=== PATIENT | female | born 1940 | race Caucasian/White ===

== ENCOUNTER 2018-04-06 11:19 | Inpatient (IN) ==
--- NOTE | 2018-04-04 14:04 | EKG Report ---
Test Performed on : 04/04/2018 1:44:47 PM Test Reason : PAT Blood Pressure : / mmHG Vent. Rate : 084 BPM Atrial Rate : 084 BPM P-R Int : 166 ms QRS Dur : 072 ms QT Int : 346 ms P-R-T Axes : 064 022 053 degrees QTc Int : 408 ms Normal sinus rhythm. Normal ECG When compared with ECG of 09-JUN-2017 21:56, No significant change was found Confirmed by Issa Weems MD ([id number]) on 04/05/2018 6:56:03 AM
[2018-04-04 14:14] LABS: HEMATOCRIT 31.5 % (37.0-47.0); HEMOGLOBIN 9.5 g/dL (12.0-16.0); MCH 22.8 PG (27-31); MCHC 30.2 g/dL (33-37); MCV 75.5 FL (81-99); MPV 8.5 FL (7.4-10.4); RBC 4.17 XMIL (4.2-5.4); RDW 18.6 % (11.5-14.5); WBC 7.98 X1000 (4.8-10.8)
[2018-04-04 14:54] LABS: AGAP 13; BUN 24 mg/dL (8-22); CALCIUM 10.1 mg/dL (8.8-10.2); CHLORIDE 104 mmol/L (98-107); COSMO 280; CREATININE 0.7 mg/dL (0.5-0.9); ESTIMATED GFR > 60; GLUCOSE 107 mg/dL (70-104); SODIUM 138 mmol/L (136-145); TCO2 21 mmol/L (25-35)
[2018-04-06] MEDS ORDERED: KEFZOL 1 GM/D5W 0 GM/0 ML IVPB ONE (11:30)
[2018-04-06] MEDS ORDERED: LR 1,000 ML ONE (11:30)
[2018-04-06] MEDS ORDERED: FENTANYL ONE ×2 (13:08→16:14)
[2018-04-06] MEDS ORDERED: DIPRIVAN 1% ONE (13:08)
[2018-04-06] MEDS ORDERED: XYLOCAINE-MPF 2% ONE (13:08)
[2018-04-06] MEDS ORDERED: VALIUM ONE (13:27)
[2018-04-06] MEDS ORDERED: VANCOMYCIN ONE ×2 (14:49→16:36)
[2018-04-06] MEDS ORDERED: TOBRAMYCIN IV ONE (15:00)
[2018-04-06] MEDS ORDERED: NEOSPORIN G.U. IRRIGANT ONE (15:01)
[2018-04-06] MEDS ORDERED: SODIUM CHLORIDE 0.9% 10 ML ONE ×2 (15:22→16:09)
[2018-04-06] MEDS ORDERED: ROBINUL ONE (15:59)
[2018-04-06] MEDS ORDERED: NEO-SYNEPHRINE ONE (16:08)
[2018-04-06] MEDS ORDERED: ZOFRAN ONE (16:09)
[2018-04-06] MEDS ORDERED: DECADRON ONE (16:09)
[2018-04-06] MEDS ORDERED: VANCOMYCIN 1 GM/NS 1 GM/250 ML IVPB ONE (16:14)
[2018-04-06] MEDS ORDERED: OFIRMEV 1000 MG/ISOTONIC SOLN 1,000 MG/100 ML BOTTLE ONE (16:41)
[2018-04-06] MEDS ORDERED: NS 1,000 ML ONE (18:28)
[2018-04-06] MEDS ORDERED: ZOFRAN PO PRN (19:00)
[2018-04-06] MEDS ORDERED: OXY IR PO PRN (19:00)
[2018-04-06] MEDS ORDERED: DILAUDID IV PRN ×2 (19:00)
[2018-04-06] MEDS: NS 1,000 ML IV SCH (20:55)
[2018-04-06] MEDS: OXY IR PO PRN (20:55)
--- NOTE | 2018-04-06 21:03 | Diag Imaging Result Doc PS360 ---
KNEE 1-2 VIEWS-LEFT - 04/06/2018 INDICATION: postop TECHNIQUE: Two views COMPARISON: 01/06/2017 FINDINGS: There has been removal of the tibial prosthesis. The femoral prosthesis remains stable. There has been placement of extensive surgical radiodense material. IMPRESSION: Removal of the tibial prosthesis. No complication. Electronically signed by Curtis Gregorio 04/06/2018 9:01 PM
--- NOTE | 2018-04-06 21:33 | OPERATIVE NOTE ---
PROCEDURE DATE: 04/06/2018 PREOPERATIVE DIAGNOSIS: Chronic infection left total knee arthroplasty. POSTOPERATIVE DIAGNOSIS: Chronic infection left total knee arthroplasty. PROCEDURE: Irrigation and debridement, and removal of left total knee arthroplasty, and application of antibiotic beads with placement of a cemented femoral component with an all poly tibial polyethylene. SURGEON: Jose Orellana MD 1ST MANAGER ASSEMBLY: Mikaela Abbott SECOND MANAGER ASSEMBLY: Valente Mansfield RN. ANESTHESIA: General. IV FLUIDS: 1500 mL lactated Ringer's. ESTIMATED BLOOD LOSS: 20 mL TOURNIQUET TIME: 90 minutes at 350 mmHg. COMPLICATIONS: None. INDICATIONS: The patient is a pleasant 77-year-old female who is status post left total knee arthroplasty in December of 2016 with subsequent I and D, and application of antibiotic beads. Patient has been treated with chronic p.o. antibiotics for suppression, however , patient has continued with swelling and discomfort in the right knee, and given the [employer] infection and recommendation to proceed with I and D and removal of the implant, and application of antibiotic beads. Risks and benefits of surgery were explained, including the risks of anesthesia, , bleeding, continued infection, failure to relieve pain, postop stiffness, nerve injury, blood clots, and other imponderables. All questions were answered. The patient and family wished to proceed with surgery. DETAILS OF OPERATION: Patient was taken to the operating room and placed supine on the operating table. Once adequate anesthesia was obtained, patient's left lower extremity was prepped and draped in the usual sterile fashion. Esmarch was used to exsanguinate the left lower extremity and the tourniquet was inflated to 300 mmHg. A standard anterior incision was made with skin knife. The medial and skin envelopes developed. Standard medial parapatellar arthrotomy was then performed. The patient did have some purulent fluids. The cultures were obtained. She also had an area on the superior medial aspect of the suprapatellar region which appeared to have a purulent tract which was also developed, and debrided and cultured. After this had been performed, the polyethylene was removed. Attention then turned to the femoral component. An osteotome was used circumferentially to remove the implant. Patient did have evidence of soft osteoporotic bone, and had a small crack and fracture of the lateral epicondyle. The osteotome was then used to remove the tibial component. This followed by removal of all of the cement as well with small osteotome. The patellar component was also removed without difficulty. After this was performed, a total of 6000 mL of antibiotic pulsatile lavage was used to irrigate the wound. This was also followed by pulsatile lavage with Vashe wound solution. After adequate irrigation and debridement had been conducted, the antibiotic beads were prepared earlier in the case. Vancomycin was mixed with cement on the back table. After the preparation of the bone, the femoral component was cemented and held in position loosely. The tenaculum was used to maintain the reduction of the lateral condyle. A size 14 all polyethylene tibial insert was then cemented, and the knee was then maintained in full extension while the cement cured. After cement had cured, it appeared to be stable and had good bone fragment. The lateral condyle appeared to be stable. One 18 Hemovac drain was placed and was not sewn in. The antibiotic beads were then placed. This followed by closure of the arthrotomy with a 0 PDS. The remaining antibiotic beads were placed superficially. 2-0 Prolene was then used to repair the subcutaneous tissue. Adaptic, sterile 4 x 4, Webril, cryo unit, and cryo unit, Conrad wrap of the left lower extremity. Patient tolerated the procedure well with no complications,. and was transferred to recovery room in stable condition. cc: Jose Orellana MD MTDD
[2018-04-06] MEDS: PERIDEX MT SCH (23:22)
[2018-04-06] MEDS ORDERED: CHLORASEPTIC SPRAY MT PRN (23:46)
[2018-04-07] MEDS ORDERED: XANAX PO PRN (00:44)
[2018-04-07] MEDS ORDERED: VANCOMYCIN 1 GM/NS 1 GM/250 ML IVPB IV ONE (04:30)
[2018-04-07] MEDS: XARELTO PO SCH (05:23)
[2018-04-07 06:03] LABS: HEMATOCRIT 26.9 % (37.0-47.0); HEMOGLOBIN 7.9 g/dL (12.0-16.0)
--- NOTE | 2018-04-07 06:03 | PROGRESS NOTE ---
DATE: 04/07/2018 SUBJECTIVE: Patient is a pleasant 77-year-old female who is 1 day status post removal of I D and removal of implant with application of antibiotic beads left knee. Patient currently is resting comfortably. PHYSICAL EXAMINATION: The left lower extremity dressing is intact. Calf is soft. She has active dorsiflexion and plantar flexion. She is grossly neurovascularly intact. LABORATORY: Labs are pending. Cultures are pending. IMPRESSION: Postoperative day #1 status post I D and removal of prosthesis, and application of antibiotic beads. PLAN: At this point, we will consult Dr. Dorsey for further evaluation and recommendations for antibiotic treatment regimen. We will consult Taper Operator for discharge planning. cc: Jose Orellana MD
[2018-04-07 06:24] LABS: AGAP 9; BUN 16 mg/dL (8-22); CALCIUM 9.4 mg/dL (8.8-10.2); CHLORIDE 108 mmol/L (98-107); COSMO 283; CREATININE 0.7 mg/dL (0.5-0.9); ESTIMATED GFR > 60; GLUCOSE 148 mg/dL (70-104); POTASSIUM 5.2 mmol/L (3.5-5.1); SODIUM 140 mmol/L (136-145); TCO2 23 mmol/L (25-35)
[2018-04-07] MEDS: NS 1,000 ML IV SCH (07:30)
[2018-04-07] MEDS: PERIDEX MT SCH ×2 (08:34→22:01)
[2018-04-07] MEDS: LEXAPRO PO SCH (08:34)
[2018-04-07] MEDS: GLUCOPHAGE PO SCH ×2 (08:34→22:01)
[2018-04-07] MEDS: DITROPAN PO SCH (08:35)
[2018-04-07] MEDS: BUSPAR PO SCH ×2 (08:35→22:01)
[2018-04-07] MEDS: PRILOSEC PO SCH (08:35)
[2018-04-07] MEDS: OXY IR PO PRN ×4 (08:36→19:12)
[2018-04-07] MEDS ORDERED: LIPITOR PO SCH (09:00)
[2018-04-07] MEDS: CUBICIN 500 MG in NS 100 ML IV SCH (10:02)
[2018-04-07 10:58] LABS: INR 1.57
--- NOTE | 2018-04-07 11:12 | INFECTIOUS DISEASE CONSULT REP ---
DATE: 04/07/2018 CONCLUSION: The patient is status post irrigation and debridement and removal of an infected left total knee arthroplasty and application of antibiotic beads with placement of a cemented femoral component with an all poly tibial polyethylene. Two prior cultures from the patient's knee have grown methicillin-resistant Staph aureus and I strongly suspect that the same infection will show up on the cultures, Dr. Orellana took at surgery during the surgery yesterday. RECOMMENDATIONS: I the am putting the patient on daptomycin. Some of the side-effect of the medication namely muscle toxicity has been explained to the patient who agrees with treatment. I told the patient and her daughter that while the patient is on daptomycin, she should not take Lipitor because both Lipitor and daptomycin can cause muscle damage. DISCUSSION: The patient has had a methicillin-resistant Staph aureus infection of her left total knee arthroplasty, and there was a culture which grew MRSA on March 24, 2017 and another one on March 17, 2018. The patient's knee has been swelling and it is painful and also drains. Laboratory studies thus far show a CBC with a white count of 7980, hemoglobin 7.9, platelet count 471,000. Creatinine is 0.7. GFR is greater than 60. The results of the cultures from yesterday are pending. The Gram stains performed on the knee show no bacteria. PAST MEDICAL HISTORY/REVIEW OF SYSTEMS: Eyes and ears: Patient has decreased hearing. Her vision is okay. Neck: No stiffness. Respiratory: The patient does get short of breath on exertion. She is not coughing. Cardiac: She does not have any chest pain or palpitations. GI: She has problems with constipation. Genitourinary: Patient has urinary incontinence. Neurologic: No seizures and no recent loss of motor or sensory function. Bones, joints, muscles: See present illness. Endocrine: Patient is a diabetic, but she does not have thyroid disease. General: The patient has lost 30 pounds and she can walk but usually she needs a cane to walk. SYSTEM SUPPORT SPECIALIST HISTORY: She is a 3, para 3, AB 0. She has had a total abdominal hysterectomy and a unilateral oophorectomy. MEDICAL DISEASES: Positive for diabetes mellitus and hyperlipidemia. The patient, at one time, had hypertension, but she said she does not have it anymore. INFECTIOUS DISEASE HISTORY: Positive for pneumonia, urinary tract infection, and methicillin- resistant Staph aureus total knee arthroplasty infection. FAMILY HISTORY: Positive for diabetes mellitus, hypertension, myocardial infarction, and stroke. SOCIAL HISTORY[place] . She has dog and a cat for pets. She has not smoked cigarettes in 10 years. She does not drink alcoholic beverages or abuse drugs. PHYSICAL EXAMINATION: Vital Signs: Temperature is 97.6 degrees, pulse 77, respirations 18, blood pressure 131/53. The patient is 5 feet 8 inches tall, weighs 166 pounds. General: This is an obese, elderly female. She is in no acute distress. Head/eyes/ears/nose/throat: She can hear my spoken words and see near objects. She does not have any white coating on her tongue. Neck: No meningismus. Lungs: Clear to auscultation. Cardiovascular: Regular heart rate. Abdomen: Soft and nontender. Extremities: The patient has a large dressing around his left total knee arthroplasty. Neurologic: Patient is awake. She can move her extremities. There is no tremor. Her memory as regarding her medical history was good. Integument: No rash noted. Thank you for the consult. cc: MD Jose Cohen MD
[2018-04-07] MEDS ORDERED: NS 250 ML ONE (15:09)
[2018-04-08] MEDS: XARELTO PO SCH (05:21)
[2018-04-08 06:32] LABS: HEMATOCRIT 25.3 % (37.0-47.0); HEMOGLOBIN 7.5 g/dL (12.0-16.0)
[2018-04-08] MEDS ORDERED: OXY IR PO PRN (06:56)
[2018-04-08] MEDS: CUBICIN 500 MG in NS 100 ML IV SCH (08:12)
[2018-04-08] MEDS: PERIDEX MT SCH ×2 (08:13→23:09)
[2018-04-08] MEDS: DITROPAN PO SCH (08:13)
[2018-04-08] MEDS: BUSPAR PO SCH ×2 (08:13→23:09)
[2018-04-08] MEDS: PRILOSEC PO SCH (08:13)
[2018-04-08] MEDS: LEXAPRO PO SCH (08:13)
[2018-04-08] MEDS: GLUCOPHAGE PO SCH ×2 (08:14→23:09)
[2018-04-08] MEDS: OXY IR PO PRN ×3 (08:15→23:09)
--- NOTE | 2018-04-08 09:33 | INFECTIOUS DISEASE PROGRESS NO ---
DATE: 04/08/2018 PRESENT ILLNESS: Ms. Oropeza has had a chronic methicillin-resistant Staph aureus, infected left knee arthroplasty. She is status post irrigation, debridement and removal of that left knee done by Dr. Orellana. MEDICATION: She is receiving daptomycin 500 mg IV once a day. PHYSICAL EXAMINATION: Vital Signs: Temperature is 97.9, pulse rate 88, respiratory rate 18, blood pressure 152/49, O2 saturation 99% on room air. General: This is a chronically ill- appearing, elderly female. She is laying in the bed, currently in no acute distress. HEENT: Atraumatic, normocephalic. Oral mucous membranes are pink and moist. Conjunctivae are pale. Neck: Supple. Trachea is midline. Cardiovascular: Heart rate is regular. Radial and pedal pulses are +2 bilaterally. Respiratory: Lung sounds are clear to auscultation. Abdomen: Soft, round and nontender. Bowel sounds are active. Extremities: There is a PICC line to her right upper arm. Site is without edema, erythema, or drainage. There is a dressing in place to her left knee, which is clean, dry and intact. There is some surrounding edema noted. Neurologic: She is awake, alert and oriented. No tremors are noted. LABORATORY AND X-RAY: Today, her hemoglobin is 7.5. White count on admission was 7.98. Yesterday, her creatinine was 0.7 and estimated GFR greater than 60. So far, the left knee Gram stain shows no bacteria or yeast and more incubation is required for the final cultures. No imaging reports today. ASSESSMENT AND PLAN: Ms. Oropeza is being treated for previously infected left total knee, which has grown methicillin-resistant Staph aureus in the recent past. That knee has been removed and the plan is for her to go to rehab when she is able. Plan for now is to continue daptomycin 500 mg IV daily. I've discussed with her, the need to monitor and report side effects of muscle aches or pains and stop her Lipitor while she is taking this medication. We have also put her in isolation due to her history of MRSA in that knee last month. These plans have been discussed with and recommended by Dr. Dorsey. COMORBIDITIES: For Ms. Oropeza include that she is elderly with diabetes mellitus, gastroesophageal reflux disease, osteoarthritis and rheumatoid arthritis. Dictated by ANASTASIYA Dias for Erick Dorsey MD This chart was documented by, ANASTASIYA Dias and accurately reflects the services performed, treatment plan and medical decisions as attested by the providers signature Erick Dorsey MD. cc: MD Jose Cohen MD [facility]
--- NOTE | 2018-04-08 14:42 | PROGRESS NOTE ---
DATE: 04/08/2018 SUBJECTIVE: The patient is a pleasant,77-year-old female, who is 2 days status post I and D with removal of left total knee arthroplasty, application of antibiotic beads. She is currently resting comfortably. OBJECTIVE: Extremities: On physical examination of the patient's left lower extremity, her wound looks good. There is no significant drainage. Calf is soft. Active dorsiflexion, plantar flexion. LABS: Her hemoglobin is 7.5, hematocrit is 25.3. INTRAOPERATIVE CULTURES: Demonstrating gram-positive cocci. IMPRESSION: Postoperative day #2 status post incision and drainage and left total knee arthroplasty. PLAN: At this point, I discussed treatment options with the patient. At this time, she will continue to progress with partial weightbearing left lower extremity with physical therapy. Survey Party Chief has been consulted to assist with rehabilitation bed placement. She will be treated with daptomycin per Dr. Dorsey. cc: Jose Orellana MD
--- NOTE | 2018-04-08 15:17 | Diag Imaging Result Doc PS360 ---
EXAM: CHEST-1 VIEW - 04/08/2018 HISTORY: REHAB TECHNIQUE: Portable chest COMPARISON: 06/09/2017 FINDINGS: Heart size is normal. There is some tortuosity of the thoracic aorta similar to prior. Inspiration is mildly shallow. Lungs appear clear. There is no pleural effusion or pneumothorax identified. There is a PICC which enters from the right, and has its tip at or near the caval atrial junction. IMPRESSION: Mildly shallow inspiration. No other evidence of acute disease. Electronically signed by Matheus Bray 04/08/2018 3:15 PM
--- NOTE | 2018-04-08 16:06 | DISCHARGE SUMMARY ---
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 DISCHARGE DIAGNOSIS: Chronic infection of left total knee arthroplasty, status post irrigation debridement and removal of left total knee arthroplasty and application of antibiotic beads and placement of cemented femoral component with an all polyethylene tibial component. BRIEF HISTORY: The patient is a pleasant 77-year-old female status post left total knee arthroplasty in December 2016. Patient underwent subsequent I and D and application of antibiotic beads. She underwent treatment with IV antibiotics and has been treated with attempt at chronic suppression with doxycycline. Patient continued with some swelling and some discomfort and wished to proceed with I and D and removal of the implant. The risks and benefits discussed and all questions answered. The patient and family agreed with treatment plan. HOSPITAL COURSE: Patient admitted in the hospital, underwent irrigation and debridement and removal of left total knee arthroplasty with application of antibiotic beads and placement of cemented femoral component with an all polyethylene tibial component. Patient tolerated the procedure well. She had an uneventful postoperative course. By postoperative day #2, her hemoglobin and hematocrit was 7.5 and 25.3, her vital signs were stable. Prior to discharge, the patient is afebrile, tolerating a regular diet, was slowly mobilizing with Physical Therapy with partial weightbearing to left lower extremity. Dr. Dorsey was consulted to assist with IV antibiotic treatment regimen and patient will be treated with daptomycin. Her previous cultures did reveal MRSA. It is felt the patient would benefit from inpatient rehabilitation and patient and family are agreeable to this. DISCHARGE MEDICATIONS: 1. Oxy IR 5 mg 1 p.o. q.4 hours p.r.n. pain. 2. Xarelto 10 mg p.o. daily x2 weeks. 3. Daptomycin 500 mg IV q.24 hours. 4. For remaining medications, please see medication list. DISCHARGE INSTRUCTIONS: 1. Patient will be discharged to inpatient rehabilitation. 2. Consult Physical Therapy with partial weightbearing to left lower extremity, and patient may perform range of motion exercises as tolerated. 3. Discontinue sutures in 10 days. 4. Follow up in the office in 3 weeks. cc: Jose Orellana MD
[2018-04-08] MEDS: NS 1,000 ML IV SCH (16:23)
--- NOTE | 2018-04-08 16:23 | INFECTIOUS DISEASE PROGRESS NO ---
DATE: 04/08/2018 The patient his methicillin-resistant Staphylococcus aureus infected total knee arthroplasty. Cultures taken at surgery are growing gram-positive cocci, which most likely will be identified as methicillin-resistant Staphylococcus aureus. The patient is going to go to a rehab facility and after that will be going home. I have requested to have the patient come to my office in 3 weeks and then again at 3 weeks and then again in 2 weeks. She will be treated with daptomycin for a total of 8 weeks following surgery on her knee. After that, I will stop the antibiotics because if I keep them going, we might not know for sure if the infection has been eradicated or not; whereas, if we stop the antibiotics and there still is infection present, then we should be able to identify that, and if that were the situation, Dr. Orellana of course would not put in another prosthetic knee. cc: MD Jose Cohen MD
[2018-04-09] MEDS: NS 1,000 ML IV SCH (02:07)
[2018-04-09 05:43] LABS: HEMATOCRIT 27.6 % (37.0-47.0); HEMOGLOBIN 8.1 g/dL (12.0-16.0)
[2018-04-09] MEDS: XARELTO PO SCH (05:49)
[2018-04-09] MEDS: LEXAPRO PO SCH (08:56)
[2018-04-09] MEDS: BUSPAR PO SCH (08:56)
[2018-04-09] MEDS: DITROPAN PO SCH (08:56)
[2018-04-09] MEDS: GLUCOPHAGE PO SCH (08:56)
[2018-04-09] MEDS: CUBICIN 500 MG in NS 100 ML IV SCH (08:56)
[2018-04-09] MEDS: PRILOSEC PO SCH (08:56)
[2018-04-09] MEDS: PERIDEX MT SCH (08:57)
[2018-04-09 09:51] VITALS: BP 156/63
--- NOTE | 2018-04-09 10:33 | PROGRESS NOTE ---
DATE: 04/09/2018 Ms. Oropeza is seen status post incision and drainage of her knee. She is awaiting transfer this morning. Currently, she is resting and doing well. All transfer orders and prescriptions have been done by Dr. Orellana. She can be transferred to a [place] [facility] facility today. cc: MD Jose Ramon MD
== END 2018-04-09 14:48 | DRG 467 ==
LOC: 4N 11:19 → OPS 11:19 → EDSTATUS 13:30 → OBSVTOIN 18:40
PROVIDERS: ADMIT Orthopaedic Surgery Adult Reconstructive Orthopaedic Surgery; ATTEND Orthopaedic Surgery Adult Reconstructive Orthopaedic Surgery
CPT/HCPCS: 36569; 71010; 71045; 73560; 80048; 85014; 85018; 85027; 85610; 87070; 87075; 87077; 87186; 87205; 93005; 93010; 94760; 94761; 94799; 97162; 97530; A9270; J0131; J0690; J0878; J1100; J1170; J2370; J2405; J3010; J3260; J3370; J7030; J7050; J7120

== ENCOUNTER 2018-08-03 03:29 | Inpatient (IN) ==
--- NOTE | 2018-07-27 09:46 | EKG Report ---
Test Performed on : 07/27/2018 09:28:39 AM Test Reason : PAT Blood Pressure : / mmHG Vent. Rate : 061 BPM Atrial Rate : 061 BPM P-R Int : 184 ms QRS Dur : 072 ms QT Int : 388 ms P-R-T Axes : 037 008 010 degrees QTc Int : 390 ms Normal sinus rhythm. Nonspecific ST abnormality Abnormal ECG When compared with ECG of 04-APR-2018 13:44, No significant change was found Confirmed by Gerardo SUAZO, Spencer Diallo ([id number]) on 07/29/2018 11:58:53 AM
[2018-07-27 10:01] LABS: URINE SOURCE CLEAN CATCH
[2018-07-27 10:16] LABS: BASO# 0.05 X1000 (0.0-0.2); BASO% 0.8 % (0.0-0.8); EOS# 0.34 X1000 (0.0-0.7); EOS% 5.4 % (0.0-10.0); HEMATOCRIT 37.8 % (37.0-47.0); HEMOGLOBIN 12.1 g/dL (12.0-16.0); LYMPH# 2.59 X1000 (1.2-3.4); LYMPH% 41.2 % (20.5-51.1); MCH 26.7 PG (27-31); MCV 83.3 FL (81-99); MONO# 0.56 X1000 (0.11-0.59); MONO% 8.9 % (1.7-9.3); MPV 9.8 FL (7.4-10.4); NEUT# 2.74 X1000 (1.4-6.5); NEUT% 43.7 % (42.2-75.2); PLT 221 X1000 (130-400); RBC 4.54 XMIL (4.2-5.4); RDW 16.3 % (11.5-14.5); WBC 6.28 X1000 (4.8-10.8)
[2018-07-27 10:18] LABS: BILIRUBIN URINE NEGATIVE (NEGATIVE); BLOOD URINE NEGATIVE (NEGATIVE); COLOR YELLOW; GLUCOSE URINE NEGATIVE (NEGATIVE); KETONE URINE NEGATIVE (NEGATIVE); LEUKOCYTES URINE MODERATE (NEGATIVE); NITRITE URINE NEGATIVE (NEGATIVE); PH URINE 5.5; PROTEIN URINE NEGATIVE (NEGATIVE); TURBIDITY URINE CLEAR (CLEAR); UR EPITHELIAL CELLS <10 /HPF (<10); URINE BACTERIA 1+ /HPF; URINE RBC <10 /HPF (<10); UROBILINOGEN URINE NORMAL (NORMAL)
[2018-07-27 10:28] LABS: INR 0.92; PROTIME 13.2 Seconds (11.0-16.0)
[2018-07-27 10:29] LABS: PTT 28.8 Seconds (22.3-41.8)
[2018-07-27 11:26] LABS: AGAP 12; BUN 27 mg/dL (8-22); CALCIUM 9.3 mg/dL (8.8-10.2); CHLORIDE 107 mmol/L (98-107); COSMO 285; CREATININE 0.8 mg/dL (0.5-0.9); ESTIMATED GFR > 60; GLUCOSE 100 mg/dL (70-104); POTASSIUM 4.1 mmol/L (3.5-5.1); SODIUM 140 mmol/L (136-145); TCO2 21 mmol/L (25-35)
[2018-08-03] MEDS ORDERED: COLACE ONE (12:04)
[2018-08-03] MEDS ORDERED: REGLAN ONE (12:05)
[2018-08-03] MEDS ORDERED: KEFZOL 1 GM/D5W 1 GM/50 ML IVPB ONE (12:05)
[2018-08-03] MEDS ORDERED: LYRICA ONE (12:05)
[2018-08-03] MEDS ORDERED: LR 1,000 ML ONE (12:05)
[2018-08-03] MEDS ORDERED: CELEBREX ONE (12:05)
[2018-08-03] MEDS ORDERED: PEPCID ONE (12:05)
[2018-08-03] MEDS ORDERED: DIPRIVAN 1% ONE (12:57)
[2018-08-03] MEDS ORDERED: XYLOCAINE-MPF 2% ONE (13:02)
[2018-08-03] MEDS ORDERED: TORADOL ONE (14:27)
[2018-08-03] MEDS ORDERED: DURAMORPH ONE (14:27)
[2018-08-03] MEDS ORDERED: VANCOMYCIN ONE ×2 (14:27→16:23)
[2018-08-03] MEDS ORDERED: MARCAINE 0.25% PF/EPI 1:200,000 ONE (14:27)
[2018-08-03] MEDS ORDERED: SODIUM CHLORIDE 0.9% ONE (14:28)
[2018-08-03] MEDS ORDERED: EXPAREL 1.3% ONE (14:28)
[2018-08-03] MEDS ORDERED: CYKLOKAPRON 1,000 MG/NS 1,000 MG/100 ML IVPB ONE ×2 (14:28→15:53)
[2018-08-03] MEDS ORDERED: NEOSPORIN G.U. IRRIGANT ONE (14:28)
[2018-08-03] MEDS ORDERED: ZOFRAN ONE (14:59)
[2018-08-03] MEDS ORDERED: DECADRON ONE (15:00)
[2018-08-03] MEDS ORDERED: DILAUDID ONE (15:13)
[2018-08-03] MEDS ORDERED: FENTANYL ONE (15:19)
[2018-08-03] MEDS ORDERED: VANCOMYCIN 1 GM/NS 1 GM/250 ML IVPB ONE (15:24)
[2018-08-03] MEDS ORDERED: EPHEDRINE ONE (17:17)
[2018-08-03] MEDS ORDERED: NS 1,000 ML ONE (17:44)
[2018-08-03 17:59] LABS: URINE SOURCE CATH
[2018-08-03 18:02] LABS: BILIRUBIN URINE NEGATIVE (NEGATIVE); BLOOD URINE NEGATIVE (NEGATIVE); COLOR YELLOW; GLUCOSE URINE NEGATIVE (NEGATIVE); KETONE URINE NEGATIVE (NEGATIVE); LEUKOCYTES URINE NEGATIVE (NEGATIVE); NITRITE URINE NEGATIVE (NEGATIVE); PROTEIN URINE NEGATIVE (NEGATIVE); SP GRAVITY URINE 1.011; TURBIDITY URINE CLEAR (CLEAR); UROBILINOGEN URINE NORMAL (NORMAL)
[2018-08-03 18:04] LABS: UR EPITHELIAL CELLS <10 /HPF (<10); URINE BACTERIA NEGATIVE /HPF; URINE RBC <10 /HPF (<10); URINE WBC <10 /HPF (<10)
[2018-08-03] MEDS ORDERED: OXY IR PO PRN ×2 (19:15)
[2018-08-03] MEDS ORDERED: ZOFRAN PO PRN (19:15)
[2018-08-03] MEDS ORDERED: DEMEROL IV PRN (19:16)
--- NOTE | 2018-08-03 19:46 | OPERATIVE NOTE ---
PROCEDURE DATE: 08/03/2018 PREOPERATIVE DIAGNOSIS: Status post irrigation and debridement, removal of prosthesis, application of antibiotic beads, cemented femoral condyle and all-polyethylene tibial component for a left total knee arthroplasty infection. POSTOPERATIVE DIAGNOSIS: Status post irrigation and debridement, removal of prosthesis, application of antibiotic beads, cemented femoral condyle and all-polyethylene tibial component for a left total knee arthroplasty infection. PROCEDURE: Revision left total knee arthroplasty with DePuy Sigma size 3, TC3 femoral component with a 40 mm universal femoral sleeve, 75 x 16 universal fluted stem, a size 4 revision tibial tray with a 37 mm metaphyseal sleeve, and 75 x 14 mm universal fluted stem, a 17.5 mm rotating platform tibial insert and a 32 mm round dome patella. SURGEON: Jose Orellana MD ASSISTED LIVING HOME DIRECTOR: ANASTASIYA Prather SECOND WOVEN LABEL DESIGNER: Valente Mansfield RN ANESTHESIA: General. INTRAVENOUS FLUIDS: Lactated Ringer 1600 mL ESTIMATED BLOOD LOSS: 25 mL TOURNIQUET TIME: Two hours at 300 mmHg. COMPLICATIONS: None. INDICATION: The patient is a pleasant 77-year-old female who it is status post left total knee arthroplasty in 12/2016. The patient developed postoperative infection and underwent I and D and attempted salvage of procedure with long-term antibiotics. She continued with worsening symptoms, and approximately 4 months ago underwent I and D, removal of prosthesis, application of antibiotic beads with cemented femoral component and an all-polyethylene tibial component. She was treated with IV antibiotics. Postoperatively she responded well on postoperative lab results, and was negative for infection. Recommendation is to proceed with revision left total knee arthroplasty. The risks, benefits and alternatives of surgery were explained, including the risks of anesthesia, , bleeding, infection, failure to relieve pain, postoperative stiffness, nerve injury, blood clots and other imponderables. All questions were answered and the patient and family wished to proceed with surgery. DETAILS OF OPERATION: The patient was taken to the operating room and placed supine on the operating table. Once adequate anesthesia was obtained, the patient's left lower extremity was subsequently prepped and draped in the usual sterile fashion. An Esmarch was used to exsanguinate the left lower extremity. The tourniquet was inflated to 300 mmHg. A standard anterior incision was made through the previous surgical incision. A medial parapatellar arthrotomy was then performed. Intraoperative cultures were obtained and stat Gram stain was negative for bacteria. After adequate elevation of the soft tissue, the femoral component was removed without difficulty as well as the tibial component. Provisional resection of the tibia was performed to remove the remaining portion of the cement. After this had been performed, sequential reaming was conducted in the intramedullary canal as well as the femur up to a size 12 for the tibia and up to a size 16 for the femur. Over-reaming was then conducted on both the proximal tibia and the distal femur. Sequential broaching was then performed with the metaphyseal broach up to a size 37. It had good fit. This was countersunk and resected off the proximal tibia, off the trial broach. A size 4 tray with a 37 mm metaphyseal sleeve and a 75 x 12 trial stem was then placed. It had good fit. Attention was then turned to the distal femur, where sequential broaching was performed up to a size 40 mm. After this had been performed, the stem was placed in the broach. The distal femoral cutting block was pinned in position. Distal femoral cut was then performed. The chamfer cutting block was placed in position and with the knee held in approximately 90 degrees of flexion. This was then pinned. Anterior, posterior and chamfer cuts were then made. A box cutting guide was then placed and the box cut was performed. Femoral construct was then assembled, and it had good fit. The patella was everted and gently minimally resected. A guide was then placed and the drill holes were placed. We had good patellofemoral tracking. The trial components were then removed. Vancomycin was mixed with cement on the back table while copious irrigation was performed with antibiotic pulsatile lavage. The tibial and femoral components were assembled on back table. The tibial construct was then cemented in position first. Excess cement was removed with a [place]. The femoral construct was then was cemented in standard fashion. It had good fit. The trial tibial insert was then placed in full extension. Axial load was maintained while the cement cured. The patella was cemented in standard fashion. After the cement had cured, inspection of the patella had inadequate fixation; therefore, it was recut and redrilled. A new batch of cement was performed. The patella was then cemented and had good fit at that point. Exparel was placed in deep soft tissue as well as subcutaneous tissue. The 17.5 mm rotating platform tibial insert appeared to be the correct size. The trial insert was removed. Exparel was placed in the deep posterior capsule. The wound was copiously irrigated with antibiotic pulsatile lavage. The 17.5 mm rotating platform tibial insert was then placed. We had good soft tissue balance, good range of motion and good patellofemoral tracking. A 1/8- inch Hemovac drain was placed. It was not sewn in. Copious irrigation was then performed once again with antibiotic pulsatile lavage. Number 1 Vicryl was then used to repair the arthrotomy, followed by 2-0 Vicryl to repair subcutaneous tissue and skin rosanne. Adaptic, sterile 4 x 4's, ABD pad, Webril, cryotherapy unit and Conrad wrap were applied to the left lower extremity. The patient tolerated the procedure well. There was no complication. She was transferred to the recovery room in stable condition. cc: Jose Orellana MD
--- NOTE | 2018-08-03 20:19 | Diag Imaging Result Doc PS360 ---
EXAM: KNEE 1-2 VIEWS-LEFT 08/03/2018 HISTORY: Rev. Left total knee TECHNIQUE: Three views COMMENT: There is a total knee arthroplasty which has replaced the femoral arthroplasty prosthesis present on 04/06/2018. The antibiotic eluding beads and cement which was present over the tibial plateau region at the time the previous study has been resected. IMPRESSION: Postsurgical change. Electronically signed by Rosalio Constantino 08/03/2018 8:17 PM
[2018-08-03] MEDS ORDERED: KEFZOL 1 GM/D5W 1 GM/50 ML IVPB IV SCH (22:30)
[2018-08-04] MEDS: COLACE PO SCH ×3 (00:19→22:45)
[2018-08-04] MEDS: BUSPAR PO SCH ×3 (00:19→21:45)
[2018-08-04] MEDS ORDERED: VANCOMYCIN 1 GM/NS 1 GM/250 ML IVPB IV ONE (03:30)
[2018-08-04] MEDS ORDERED: XARELTO PO SCH (06:00)
[2018-08-04 06:02] LABS: HEMATOCRIT 33.9 % (37.0-47.0); HEMOGLOBIN 10.7 g/dL (12.0-16.0)
[2018-08-04 06:24] LABS: AGAP 9; BUN 23 mg/dL (8-22); CHLORIDE 106 mmol/L (98-107); COSMO 283; CREATININE 0.9 mg/dL (0.5-0.9); ESTIMATED GFR > 60; GLUCOSE 131 mg/dL (70-104); POTASSIUM 5.2 mmol/L (3.5-5.1); SODIUM 139 mmol/L (136-145); TCO2 24 mmol/L (25-35)
--- NOTE | 2018-08-04 07:02 | ORTHOPAEDICS PROGRESS NOTE ---
DATE: 08/04/2018 SUBJECTIVE: The patient is a pleasant, 77-year-old female who is 1 day status post revision left total knee arthroplasty. The patient is currently resting comfortably. OBJECTIVE: On physical examination of the patient's left lower extremity, her wound looks good. There are no signs or symptoms of infection. Calf is soft. She has active dorsiflexion and plantar flexion. Her hemoglobin is 10.7, hematocrit is 33.9. IMPRESSION: Postoperative day #1 status post revision left total knee arthroplasty. PLAN: At this point, we will begin mobilization with physical therapy, weightbearing as tolerated. We will consult social human services assistants for discharge planning for inpatient rehabilitation. cc: Jose Orellana MD
[2018-08-04] MEDS: ULTRAM PO PRN ×2 (07:32→19:33)
[2018-08-04] MEDS: PRILOSEC PO SCH (08:44)
[2018-08-04] MEDS: DITROPAN PO SCH (08:45)
[2018-08-04] MEDS: GLUCOPHAGE PO SCH ×2 (08:45→17:06)
[2018-08-04] MEDS: LEXAPRO PO SCH (08:45)
[2018-08-04] MEDS: PERIDEX MT SCH ×2 (08:46→22:45)
[2018-08-04] MEDS: NS 1,000 ML IV SCH (08:49)
--- NOTE | 2018-08-04 13:11 | Diag Imaging Result Doc PS360 ---
EXAM: CHEST-2 VIEWS 08/04/2018 HISTORY: rehab placement TECHNIQUE: PA and lateral chest COMMENT: The inspiration is suboptimal. There is a platelike opacity in the left upper lobe which may indicate atelectasis otherwise lungs are clear and unchanged since 04/08/2018. IMPRESSION: Left upper lobe subsegmental atelectasis. Electronically signed by Rosalio Constantino 08/04/2018 1:09 PM
[2018-08-05] MEDS ORDERED: OXY IR PO PRN (06:14)
[2018-08-05 06:50] LABS: HEMATOCRIT 28.3 % (37.0-47.0); HEMOGLOBIN 8.9 g/dL (12.0-16.0)
[2018-08-05] MEDS: OXY IR PO PRN ×2 (07:41→13:51)
--- NOTE | 2018-08-05 09:35 | DISCHARGE SUMMARY ---
ADMISSION DATE: 08/03/2018 DISCHARGE DATE: 08/06/2018 ADMITTING DIAGNOSIS: Left total knee arthroplasty infection and status post irrigation debridement and removal of prosthesis, application antibiotic beads and cemented femoral component condyle and all polyethylene tibial insert component for total left total knee arthroplasty infection. POSTOPERATIVE DIAGNOSIS: Left total knee arthroplasty infection and status post irrigation debridement and removal of prosthesis, application antibiotic beads and cemented femoral component condyle and all polyethylene tibial insert component for total left total knee arthroplasty infection status post revision left total knee arthroplasty. BRIEF HISTORY: The patient is a pleasant 77-year-old female who is status post left total knee arthroplasty in December 2016. Patient developed postoperative infection underwent I and D and attempted salvage of the prosthesis with group home antibiotics. She has continued with chronic infection and recommendation to proceed with I and D and removal of prosthesis was offered. This was performed approximately 4 months ago. Patient was treated with IV antibiotics and has had completed the course. Her postoperative lab results were negative for an infection. Recommendation to proceed with revision left total knee arthroplasty was offered. Risks, benefits were discussed and all questions answered. HOSPITAL COURSE AND TREATMENT: The patient was admitted and underwent revision left total knee arthroplasty. She tolerated procedure well. Intraoperative cultures were negative. By postoperative day #2, her hemoglobin and hematocrit stabilized to 8.9 and 28.3. She was slowly mobilizing with physical therapy and it was felt she would benefit from inpatient rehabilitation. The patient and family were agreeable to this. Prior to discharge, the patient is afebrile tolerating a regular diet. Wound looked good. There is no signs or symptoms of infection. Pain was controlled with p.o. medication. DISCHARGE MEDICATIONS: 1. Oxy IR 5 mg p.o. 1 to 2 p.o. q.4 hours p.r.n. pain. 2. Aspirin 325 mg p.o. daily. 3. For remaining medications, please see medication list. DISCHARGE INSTRUCTIONS: 1. Patient was discharged for inpatient rehabilitation. 2. Consult physical therapy with full weightbearing, and range of motion exercises and gait training per total knee protocol and PCU. 3. Discontinue rosanne in 11 days. 4. Follow up in the office in 3 to 4 weeks. cc: Jose Orellana MD MTDD
[2018-08-05] MEDS: ASPIRIN PO SCH (09:44)
[2018-08-05] MEDS: COLACE PO SCH (09:44)
[2018-08-05] MEDS: DITROPAN PO SCH (09:45)
[2018-08-05] MEDS: BUSPAR PO SCH (09:45)
[2018-08-05] MEDS: GLUCOPHAGE PO SCH ×2 (09:45→17:37)
[2018-08-05] MEDS: PERIDEX MT SCH (09:45)
[2018-08-05] MEDS: LEXAPRO PO SCH (09:45)
[2018-08-05] MEDS: PRILOSEC PO SCH (09:45)
--- NOTE | 2018-08-05 10:45 | ORTHOPAEDICS PROGRESS NOTE ---
DATE: 08/05/2018 SUBJECTIVE: The patient is a pleasant 77-year-old female who is 2 days status post revision left total knee arthroplasty. She is experiencing some discomfort this morning. OBJECTIVE: On physical exam, patient's left lower extremity dressing is intact. There is some swelling will some bleeding at the site of the incision. Calf is soft. She has active dorsiflexion, plantar flexion. She is neurovascularly distally. LABS: Pending. IMPRESSION: Postoperative day #2 status post revision left total knee arthroplasty. PLAN: At this point, I felt the patient would benefit from inpatient rehabilitation. Maintenance Analyst had been consulted for discharge planning. cc: Jose Orellana MD
[2018-08-05] MEDS: NS 1,000 ML IV SCH (13:52)
[2018-08-05] MEDS: ULTRAM PO PRN (17:39)
[2018-08-06] MEDS: OXY IR PO PRN (00:28)
[2018-08-06] MEDS: PERIDEX MT SCH ×2 (00:29→08:06)
[2018-08-06] MEDS: BUSPAR PO SCH ×2 (00:29→08:03)
[2018-08-06] MEDS: COLACE PO SCH ×2 (00:29→08:05)
[2018-08-06 07:45] LABS: HEMATOCRIT 25.7 % (37.0-47.0)
--- NOTE | 2018-08-06 07:46 | ORTHOPAEDICS PROGRESS NOTE ---
DATE: 08/06/2018 SUBJECTIVE: The patient is a pleasant 77-year-old female, three days status post revision left total knee arthroplasty. She is currently resting comfortably. OBJECTIVE: General: On physical exam, patient's wound looks good. There are no signs or symptoms of infection. Her intraoperative culture is negative. Left lower extremity: The left lower extremity wound looks good. There are no signs or symptoms of infection. Calf is soft. She has active dorsiflexion and plantar flexion. Her intraoperative cultures were negative. IMPRESSION: Postoperative day #3 status post left revision total knee arthroplasty. PLAN: At this point, we will plan on discharging for inpatient rehabilitation. cc: Jose Orellana MD
[2018-08-06 07:57] VITALS: BP 131/49
[2018-08-06] MEDS: DITROPAN PO SCH (08:03)
[2018-08-06] MEDS: PRILOSEC PO SCH (08:04)
[2018-08-06] MEDS: LEXAPRO PO SCH (08:04)
[2018-08-06] MEDS: GLUCOPHAGE PO SCH (08:05)
[2018-08-06] MEDS: ASPIRIN PO SCH (08:05)
== END 2018-08-06 10:14 | DRG 468 ==
LOC: SURHOLD 03:29 → 4N 18:26
PROVIDERS: ADMIT Orthopaedic Surgery Adult Reconstructive Orthopaedic Surgery; ATTEND Orthopaedic Surgery Adult Reconstructive Orthopaedic Surgery
CPT/HCPCS: 71020; 71046; 73560; 80048; 81001; 82948; 85014; 85018; 85025; 85610; 85730; 86850; 86900; 86901; 87070; 87075; 87205; 93005; 93010; 94761; 94799; 97110; 97116; 97162; 97530; A9270; C9290; J0690; J1100; J1170; J1885; J2274; J2275; J2405; J3010; J3370; J7030; J7120; Q9974; XXXXX